=== PATIENT | male | born 1945 | race Caucasian/White ===

== ENCOUNTER 2024-09-29 18:25 | Emergency (ER) | payer MEDICARE, SELFPAY ==
[2024-09-29] VITALS (17 sets, daily range): BP systolic 132–170; BP diastolic 88–99; PULSE 65–81; RESP 8–22; TEMP 36.8; O2SAT 89–96; BMI 28.5
--- NOTE | 2024-09-29 18:50 | ED.SOB ---
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 The patient and his notes that he has had increased cough and chest congestion over the past year. It has worsened over the past month and a half with episodes of shortness of breath with activity and definitely increased over the last 4 and half days. He notes that he feels like he has congestion but he has not had fever or chills. 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 He has not experienced any unusual weight loss. Sometimes he feels like there is some congestion in his throat Related Data Home Medications ?Medication ?Instructions ?Recorded ?Confirmed allopurinol 100 mg tablet 100 mg PO DAILY 11/09/22 01/30/23 losartan 100 mg tablet 100 mg PO DAILY 11/09/22 01/30/23 atenolol 25 mg tablet 25 mg PO DAILY 12/07/22 01/30/23 Previous Rx's ?Medication ?Instructions ?Recorded acetaminophen 500 mg capsule 500 - 1,000 mg (1 - 2 x 500 mg) PO 12/12/22 Q6H PRN #100 caps aspirin 81 mg tablet,delayed 81 mg PO BID #50 tabs 12/12/22 release albuterol sulfate 2.5 mg/3 mL 2.5 mg (3 mL) inhalation Q4H PRN 09/29/24 (0.083 %) solution for nebulization #75 mL nebulizer and compressor #1 ea 09/29/24 Allergies Allergy/AdvReac Type Severity Reaction Status Date / Time lisinopril Allergy Mild Verified 09/29/24 21:12 [facility] Medical History Vasectomy planned Colonoscopy planned Hyperlipemia, 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 - Hyperlipidemia, unspecified (ICD-10) Chronic kidney disease ?N18.9 - Chronic kidney disease, unspecified (ICD-10) Gout ?M10.9 - Gout, unspecified (ICD-10) Hypertension ?I10 - Essential (primary) hypertension (ICD-10) Surgical History 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) ?Z96.641 - Presence of right artificial hip joint (ICD-10) Family History Father Osteoarthritis Diabetes Prostate cancer Brother Prostate cancer Social History Smoking Status: Never smoker Do you use any of these nicotine containing products: None How often do you have a drink containing alcohol: never How many standard drinks containing alcohol do you have on a typical day: 1 or 2 How often do you have six or more drinks on one occasion: Never AUDIT-C Alcohol total score: 0 Non-prescribed substance use: denies use Caffeine: Yes (coffee, 2 cups/AM) service: No Exam Narrative: Exam Narrative: Patient presents alert and oriented. Very pleasant gentleman. External ears eyes nose clear. Mentating normally. Patient has some fullness in the left supraclavicular fossa compared to the right. However palpating this area shows this to be very soft ankle ab supple and there is no evidence of a mass. Heart is with regular rate and rhythm. I do not auscultate significant murmur or rub. Lungs show expiratory wheeze and squeak especially in the right lower lung base. Abdomen soft moving lower extremities without edema. There is no calf tenderness. Const: Vital Signs, click to edit/add: Vital Signs - 24 hr 09/29/24 18:41 09/29/24 19:22 09/29/24 19:31 Temperature 98.3 F Pulse Rate 71 Pulse Rate [Pulse Oximeter] 81 Respiratory Rate 20 15 Blood Pressure Blood Pressure [Ri ght Upper Arm] 170/98 H Pulse Oximetry 89 94 92 Oxygen Delivery Me thod Room Air 09/29/24 19:32 09/29/24 19:45 09/29/24 20:00 Temperature Pulse Rate 74 70 69 Pulse Rate [Pulse Oximeter] Respiratory Rate 22 19 17 Blood Pressure 161/97 H Blood Pressure [Ri ght Upper Arm] Pulse Oximetry 92 92 92 Oxygen Delivery Me thod 09/29/24 20:15 09/29/24 20:30 09/29/24 21:30 Temperature Pulse Rate 69 66 68 Pulse Rate [Pulse Oximeter] Respiratory Rate 16 16 14 Blood Pressure Blood Pressure [Ri ght Upper Arm] Pulse Oximetry 92 92 94 Oxygen Delivery Me thod 09/29/24 21:45 09/29/24 22:32 09/29/24 22:45 Temperature Pulse Rate 71 68 72 Pulse Rate [Pulse Oximeter] Respiratory Rate 19 11 L 19 Blood Pressure 156/99 H Blood Pressure [Ri ght Upper Arm] Pulse Oximetry 91 90 89 Oxygen Delivery Me thod Room Air Room Air 09/29/24 23:00 09/29/24 23:02 09/29/24 23:15 Temperature Pulse Rate 69 68 68 Pulse Rate [Pulse Oximeter] Respiratory Rate 14 14 9 L Blood Pressure 134/88 Blood Pressure [Ri ght Upper Arm] Pulse Oximetry 89 93 96 Oxygen Delivery Me thod Room Air Room Air Room Air 09/29/24 23:30 09/29/24 23:32 Temperature Pulse Rate 65 71 Pulse Rate [Pulse Oximeter] Respiratory Rate 8 L 19 Blood Pressure 132/89 Blood Pressure [Ri ght Upper Arm] Pulse Oximetry 95 96 Oxygen Delivery Me thod Room Air Room Air Documenting provider has reviewed patient's vital signs: yes Course Course ED Course: Differential diagnosis includes but is not limited to COVID, influenza, RSV, bronchitis, pneumonia, congestive heart failure, PE. At this time patient is agreeable to IV labs to include CBC, comprehensive panel, troponin, EKG, D-dimer, proBNP. Will obtain chest x-ray at this time. Patient does note a normal CT in December of 2023. He is supposed to see a fan blade truer but does not have an appointment until December. Will also try a nebulizer at this time. Reevaluation(s) Reevaluation #1: Patient was placed on oxygen as his oximetry showed 88-90%. Oxygen levels rhythm at 94% and he thought he did feel better. We did try a DuoNeb and patient was noted to have oxygen levels in the 90s which did appear to stay there. Subjectively he did feel better after DuoNeb. Patient did have an elevated D-dimer and given his worsening symptoms, normal chest x-ray and oximetry we did elect to go ahead with the CT PE study of the chest which was negative for PE. It did showBibasilar ground-glass opacities with mild superimposed consolidations.. Vital Signs Vital signs: Initial Vital Signs Temperature 98.3 F 09/29/24 18:41 Temperature Source Temporal Artery Scan 09/29/24 18:41 Pulse Rate 81 09/29/24 18:41 Respiratory Rate 20 09/29/24 18:41 Blood Pressure 170/98 H 09/29/24 18:41 Blood Pressure Mean 122 H 09/29/24 18:41 Pulse Oximetry 89 09/29/24 18:41 Oxygen Delivery Method Room Air 09/29/24 18:41 Vital Signs Temperature 98.3 F 09/29/24 18:41 Pulse Rate 81 09/29/24 18:41 Respiratory Rate 20 09/29/24 18:41 Blood Pressure 170/98 H 09/29/24 18:41 Pulse Oximetry 89 09/29/24 18:41 Oxygen Delivery Method Room Air 09/29/24 18:41 Temperature 98.3 F 09/29/24 18:41 Pulse Rate 71 09/29/24 23:32 Respiratory Rate 19 09/29/24 23:32 Blood Pressure 132/89 09/29/24 23:32 Pulse Oximetry 96 09/29/24 23:32 Oxygen Delivery Method Room Air 09/29/24 23:32 MDM - SOB/Dyspnea MDM Narrative Medical decision making narrative: 1. Bronchitis-patient noted to have increased bronchial wall thickening, superimposed congestion and mucus plugging. He has tested negative for COVID influenza and RSV. He has evidence of hypoxia during his time here although much improved after a nebulizer. At this time I do suggest antibiotics and steroids. I would suggest Augmentin 875 p.o. b.i.d. x7 days and Zithromax 500 mg on day 1 and 250 mg for the subsequent 4 days. I do recommend the use of prednisone 20 mg p.o. b.i.d.. We did have a discussion regarding possibly reactivating TB but it does not sound like patient ever had an active case of TB. I do give them the option of holding off but he has elected to go ahead and start this. Will also give him prescription for nebulizer machine and albuterol as this seemed to greatly helped. At 1 point I did see his oxygen levels dropped to 88% but with repositioning of the oximetry and a few episodes of deep breathing he was at 95% once again. He is not short of breath at this time and does feel comfortable going home. 2. Shortness of breath-improved. Did check cardiac enzymes and they have negative x2. EKG does show T-wave inversion in 3 and AVF along with Q-waves noted in those leads. I think this is not acute and patient had negative cardiac enzymes here. I did not find old EKGs in our system. ProBNP was within normal limits.-no evidence of heart failure. 3. Chronic kidney disease patient had a creatinine of 1 point 6 tonight. He states his baseline is 1.5. I did give him 500 mL bolus of saline after his CT. So 4. Disposition-patient does feel comfortable going home at this time. Augmentin prednisone and Zithromax were put through our [facility] med[facility] machine and albuterol and the nebulizer were sent to his pharmacy. He is to return to the ER for worsening symptoms and as needed. Medical Records Attestation: I reviewed the patient's medical records. Lab Data Attestation: I reviewed the patient's lab results. Labs: Lab Results 09/29/24 09/29/24 09/29/24 Range/Units 16:15 19:15 19:54 WBC 5.57 (4.50-11.00) K/uL RBC 4.26 L (4.30-5.90) m/uL Hgb 13.5 (13.5-17.5) gm/dL Hct 39.9 (37.0-53.0) % MCV 94 (80-100) fL MCH 32 (26-34) pg MCHC 34 (32-36) gm/dL RDW Coeff of Mickey 12.6 (11.5-15.5) % Plt Count 256 (140-440) K/uL Neut % (Auto) 40.9 L (42.0-72.0) % Lymph % (Auto) 29.6 (20-44) % [place] % (Auto) 10.6 (0.0-11.0) % Eos % (Auto) 16.3 H (0.0-7.0) % Baso % (Auto) 2.2 (0.0-3.0) % Neut # (Auto) 2.30 (1.7-7.0) K/uL Lymph # (Auto) 1.65 (0.90-2.90) K/uL [place] # (Auto) 0.60 (0.00-0.90) K/UL Eos # (Auto) 0.90 H (0.00-0.50) K/uL Baso # (Auto) 0.12 (0.00-0.30) K/uL Abs Immat Gran (auto) 0.02 (0.00-0.30) K/uL Imm/Tot Granulo (auto) 0.4 % D-Dimer Quant (PE/DVT) 0.94 H (0.00-0.50) ug/ml Sodium 136 (135-149) mmol/L Potassium 4.0 (3.6-5.1) mmol/L Chloride 103 (96-114) mmol/L Carbon Dioxide 24 (20-32) mmol/L Anion Gap 9 (7-15) mEq/L BUN 22 (7-30) mg/dL Creatinine 1.6 H (0.5-1.5) mg/dL Estimated Creat Clear 38.66 Estimated GFR 44 ml/min Glucose 108 (60-115) mg/dL Calcium 9.1 (8.4-10.6) mg/dL Total Bilirubin 0.4 (0.1-1.5) mg/dL AST 25 (12-35) U/L ALT 20 (4-50) U/L Alkaline Phosphatase 55 (40-150) U/L NT-Pro-B Natriuret Pep 84 pg/mL Total Protein 7.1 (6.0-8.3) g/dL Albumin 4.4 (3.3-5.0) g/dL SARS-CoV-2 (PCR) (Negative) Influenza Type A (PCR) (Negative) Influenza Type B (PCR) (Negative) RSV (PCR) (Negative) Lab Acknowledgement Test Added POC Troponin I 0.04 (0.01-0.04) ng/ml 09/29/24 09/29/24 Range/Units 20:03 21:17 WBC (4.50-11.00) K/uL RBC (4.30-5.90) m/uL Hgb (13.5-17.5) gm/dL Hct (37.0-53.0) % MCV (80-100) fL MCH (26-34) pg MCHC (32-36) gm/dL RDW Coeff of Mickey (11.5-15.5) % Plt Count (140-440) K/uL Neut % (Auto) (42.0-72.0) % Lymph % (Auto) (20-44) % [place] % (Auto) (0.0-11.0) % Eos % (Auto) (0.0-7.0) % Baso % (Auto) (0.0-3.0) % Neut # (Auto) (1.7-7.0) K/uL Lymph # (Auto) (0.90-2.90) K/uL [place] # (Auto) (0.00-0.90) K/UL Eos # (Auto) (0.00-0.50) K/uL Baso # (Auto) (0.00-0.30) K/uL Abs Immat Gran (auto) (0.00-0.30) K/uL Imm/Tot Granulo (auto) % D-Dimer Quant (PE/DVT) (0.00-0.50) ug/ml Sodium (135-149) mmol/L Potassium (3.6-5.1) mmol/L Chloride (96-114) mmol/L Carbon Dioxide (20-32) mmol/L Anion Gap (7-15) mEq/L BUN (7-30) mg/dL Creatinine (0.5-1.5) mg/dL Estimated Creat Clear Estimated GFR ml/min Glucose (60-115) mg/dL Calcium (8.4-10.6) mg/dL Total Bilirubin (0.1-1.5) mg/dL AST (12-35) U/L ALT (4-50) U/L Alkaline Phosphatase (40-150) U/L NT-Pro-B Natriuret Pep pg/mL Total Protein (6.0-8.3) g/dL Albumin (3.3-5.0) g/dL SARS-CoV-2 (PCR) Negative SARS-CoV-2 (Negative) Influenza Type A (PCR) Negative PCR FLU A (Negative) Influenza Type B (PCR) Negative PCR FLU B (Negative) RSV (PCR) Negative PCR RSV (Negative) Lab Acknowledgement POC Troponin I 0.00 L (0.01-0.04) ng/ml Imaging Data Chest x-ray: Attestation: I have reviewed the pertinent imaging results. Radiologist's impression: Cardiovascular and mediastinum: Heart size and vasculature are normal in caliber and appearance. Lungs and pleural spaces: Lungs are clear. No sign of infiltrate or mass. No sign of pleural effusion. No pneumothorax. Bones and soft tissues: No significant findings. IMPRESSION: No acute or significant findings. CT scan - chest: Attestation: I have reviewed the pertinent imaging results. Radiologist's impression: Heart and vasculature: Contrast opacification of the pulmonary arterial tree is adequate. No sign of pulmonary embolism. Heart size is normal. Thoracic aorta is normal in caliber. Lungs: Bibasilar ground-glass opacities with mild superimposed consolidations with upstream distal airway debris and bronchial wall thickening. Right apical calcified granuloma. Pleura: No pleural effusion or pneumothorax. Lymph nodes/mediastinum: No mediastinal, hilar, or axillary adenopathy. Chest wall: No masses. Upper abdomen: Small hiatal hernia. Bones: Unremarkable for age. IMPRESSION: 1. No acute pulmonary embolism. 2. Bibasilar ground-glass opacities with mild superimposed consolidations. There is upstream distal airway debris and bronchial wall thickening. These findings may reflect sequelae of infectious/inflammatory or reactive bronchiolitis with mucous plugging. Aspiration could have a similar appearance. ECG Data Attestation: I personally reviewed and interpreted this ECG as follows: ECG interpretation date: 09/30/24 Interpretation: EKG by my read shows sinus rhythm at a rate of 75. There are Q-waves and T-wave inversions noted in 3 and AVF but they appear to be chronic. QT and CA intervals within normal limits. Discharge Plan Discharge Clinical Impression: Bronchitis, Hypoxia Patient Disposition: Home, Self-Care Condition: Improved Additional Instructions: Suggest starting Augmentin and Zithromax tonight for the treatment of a bronchitis. Prednisone as your steroid for 5 days but you may discontinue after 3 if you find you are improving. I did send prescription for albuterol and nebulizer machine to your pharmacy. Please remember to take the tubing that you used here tonight. Follow-up with your primary MD as we discussed. Please return to the emergency room for any worsening symptoms. Prescriptions: New (DME) nebulizer and compressor Device See Rx Instructions .Route Qty: 1 0RF Rx Instructions: As directed albuterol sulfate 2.5 mg /3 mL (0.083 %) solution for nebulization 2.5 mg inhalation Q4H PRNQty: 75 1RF No Action losartan 100 mg tablet 100 mg PO DAILY allopurinol 100 mg tablet 100 mg PO DAILY atenolol 25 mg tablet 25 mg PO DAILY aspirin 81 mg tablet,delayed release (DR/EC) 81 mg PO BID Qty: 50 0RF Rx Instructions: Medication to help prevent blood clots postoperatively; take TWICE daily. acetaminophen 500 mg capsule 500 - 1,000 mg PO Q6H MDD 4000mg PRNQty: 100 0RF Follow Up/Referrals: London Gupta MD [Primary Care Provider] - Stand Alone Forms: [employer] Info Instructions
[2024-09-29 19:26] LABS: Basophils Absolute Auto 0.12 K/uL (0.00-0.30); Basophils Percent Auto 2.2 % (0.0-3.0); Eosinophils Percent Auto 16.3 % (0.0-7.0); Hematocrit 39.9 % (37.0-53.0); Hemoglobin* 13.5 gm/dL (13.5-17.5); Immature Granulocytes Abs Auto 0.02 K/uL (0.00-0.30); Immature Granulocytes Pct Auto 0.4 %; Lymphocytes Absolute Auto 1.65 K/uL (0.90-2.90); Lymphocytes Percent Auto 29.6 % (20-44); Mean Corpuscular HGB Conc 34 gm/dL (32-36); Mean Corpuscular Hemoglobin 32 pg (26-34); Mean Corpuscular Volume 94 fL (80-100); Monocytes Percent Auto 10.6 % (0.0-11.0); Neutrophils Percent Auto 40.9 % (42.0-72.0); Platelet Count* 256 K/uL (140-440); RDW Coefficient of Variation % 12.6 % (11.5-15.5); Red Blood Count 4.26 m/uL (4.30-5.90); White Blood Count* 5.57 K/uL (4.50-11.00)
[2024-09-29 19:29] LABS: Troponin, Point-of-Care* 0.04 ng/ml (0.01-0.04)
[2024-09-29 19:31] LABS: Slide Review Reflex No
--- OUTSIDE RECORDS SUMMARY | 2024-09-29 19:31 | XMS_ITS ---
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 Problems This patient has no known problems.
--- OUTSIDE RECORDS SUMMARY | 2024-09-29 19:31 | XMS_ITS | Clinical Summary ---
Author Organization [facility] Address [address] [place] [id number] Care Team Providers Care Website Optimization Strategist Name Role Phone London Gupta MD Primary Care Provider Zane Sahu MBBS Unavailable Allergies Active Allergy Reactions Criticality Noted Date Comments Lisinopril Cough 10/22/2018 Medications losartan (COZAAR) 100 mg tabletIndicatio ns:Benign essential HTN Take 1 Tablet (100 mg) by mouth once daily. 90 Tablet 3 4 Active albuterol HFA (PRO-AIR; VENTOLIN; PROVENTIL) 90 mcg/actuation inhalerIndicati ons:Cough, unspecified type Inhale 1-2 Puffs by mouth every 4 hours if needed for Shortness Of Breath or Wheezing. With spacer if possible. 1 Each 1 4 Active montelukast (SINGULAIR) 10 mg tabletIndicatio ns:Allergy, initial encounter Take 1 Tablet (10 mg) by mouth at bedtime. 90 Tablet 3 4 Active predniSONE (DELTASONE) 5 mg tabletIndicatio ns:Gout, unspecified cause, unspecified chronicity, unspecified site Take 2 tablets daily for 7 days, then 1 tablet daily for 7 days. 21 Tablet 2 4 Active allopurinoL (ZYLOPRIM) 100 mg tabletIndicatio ns:Gout, unspecified cause, unspecified chronicity, unspecified site Take 2 Tablets (200 mg) by mouth once daily. 180 Tablet 3 5 Active amLODIPine (NORVASC) 10 mg tabletIndicatio ns:Benign essential HTN Take 0.5 Tablets (5 mg) by mouth once daily. 5 Active carvediloL (COREG) 12.5 mg tabletIndicatio ns:Benign essential HTN Take 1 Tablet (12.5 mg) by mouth two times daily with meals. 60 Tablet 11 5 Active polyethylene glycol-electrol yte (GOLYTELY) 236-22.74-6.74 -5.86 gram suspensionIndic ations:Encounte r for screening colonoscopy Drink 2 liters (half the bottle) the day before colonoscopy and 2 liters (remaining prep) 6 hours prior to colonoscopy appointment. 4000 mL 5 Active atenoloL (TENORMIN) 25 mg tabletIndicatio ns:Benign essential HTN Take 1 Tablet (25 mg) by mouth once daily. 90 Tablet 3 4 025 Discontin ued(*Medi cation adjustmen t) amLODIPine (NORVASC) 10 mg tabletIndicatio ns:Benign essential HTN Take 1 Tablet (10 mg) by mouth once daily. 90 Tablet 3 4 025 Discontin ued(*Medi cation adjustmen t) potassium chloride (Klor-Con 10) 10 mEq extended-releas e tabletIndicatio ns:Benign essential HTN Take 1 Tablet (10 mEq) by mouth once daily with a meal. 90 Tablet 3 5 025 Discontin ued(*Medi cation adjustmen t) chlorthalidone (HYGROTON) 25 mg tabletIndicatio ns:Benign essential HTN Take 1 Tablet (25 mg) by mouth once daily. 90 Tablet 3 5 025 Discontin ued(*Medi cation adjustmen t) chlorthalidone (HYGROTON) 25 mg tabletIndicatio ns:Benign essential HTN One oral every other day. 90 Tablet 3 5 025 Discontin ued(*Medi cation adjustmen t) Active Problems Problem Noted Date Diagnosed Date Bilateral lower extremity edema 09/10/2024 Reactive airways dysfunction syndrome 04/07/2024 Stage 3a chronic kidney disease 10/31/2022 Heart murmur: 2/6 rt upper sternal border 2 04/24/2022 Gout 05/23/2021 Overview (06/03/2021): Rheum eval at [facility]. Allopurinol started.Pred for flares. Change to Losaraten for htn 2/2 UA lowering effect. Allergies 05/04/2020 Hyperlipidemia Benign essential HTN Resolved Problems Problem Noted Date Diagnosed Date Resolved Date Stage 3b chronic kidney disease 12/31/2023 04/07/2024 Chronic kidney disease 11/24 Encounters Date Type Department Care Team Description 09/29/2024 Nurse Triage [facility] [address] [place] [address] Edie Alvarez RN Breathing Problem 09/28/2024 Travel 09/23/2024 4:00 PM ARTIFICIAL MARBLE WORKER Ancillary Procedure [facility] [address] [place] [address] 09/23/2024 Travel 09/23/2024 Telephone [facility] [address] [place] [address] [phone] Pulmonary, Ulsc Screening (TB/Cough) 2024 Travel 09/19/2024 2:00 PM ARTIFICIAL MARBLE WORKER Orders Only [facility] [id number] [place] [address] Lab 09/19/2024 Travel 09/17/2024 2:30 PM ARTIFICIAL MARBLE WORKER Office Visit [facility] [id number] [place] [address] Zane Sahu MBBS Consult (Referred by PCP: London Gupta MD/Diagnosis: N18.32 (ICD-10-CM) - Stage 3b chronic kidney disease (HC)) 09/17/2024 Travel 09/13/2024 Travel 09/12/2024 Telephone [facility] [address] [place] [address] Rafita Rashid MD COLONOSCOPY & EGD CASE REQUEST/ RX 09/11/2024 Orders Only [facility] [address] [place] [address] London Gupta MD <No scans attached> 09/10/2024 2:05 PM ARTIFICIAL MARBLE WORKER Office Visit [facility] [address] [place] [address] London Gupta MD Blood Pressure 09/10/2024 Travel 09/07/2024 Travel 08/26/2024 Orders Only [facility] [address] [place] [address] London Gupta MD <No scans attached> 08/25/2024 1:30 PM ARTIFICIAL MARBLE WORKER Orders Only [facility] [address] [place] [address] [place], [place] Lab 08/24/2024 Travel 08/12/2024 2:05 PM ARTIFICIAL MARBLE WORKER Office Visit [facility] [address] [place] [address] London Gupta MD Follow Up (Blood pressure) 08/12/2024 Travel 08/10/2024 Travel 07/14/2024 1:15 PM ARTIFICIAL MARBLE WORKER Telemedicine [facility] [address] [place] [address] London Gupta MD Telehealth (No vitals taken); Follow Up (Blood pressure /Cough ) 07/13/2024 Travel from Last 3 Months Immunizations Immunization Administration Dates Next Due Amb Influenza, Inact (High-d ose Quadrivalent) (Flu Clinic Only) 04/05/2020 COVID-19 VACCINE SPIKEVAX (M ODERNA 50MCG/0.5ML) 12YO+ PFS 12/31/2023 COVID-19 vaccine (Moderna 10 0mcg/0.5mL) PF, MDV 11/07/2021,10/17/2020,09/19/2020 Influenza A (H1N1), Inactiva george (Age >=3 Years) 05/21/2009 Influenza, High-dose Inactivated 05/15/2024,11/0 01/2019,06/19/2018 Influenza, High-dose Quadriv alent Inactivated 05/06/2022,04/25/2021 Influenza, Inactivated AIIV4 (Age 65+ Years) Preserv Free 05/17/2023 Pneumococcal Poly,23-Valent (Pneumovax) 05/04/20 Pneumococcal conj 13-Valent (Prevnar 13) 019 Tdap 01/05/2012 Zoster (Shingrix-RZV, recombinant) 05/13/2024, Zoster (Zostavax-ZVL, live) 05/23/2012 Family History Medical History Relation Name Comments Cancer-prostate Brother Diabetes Father Heart Disease Father cabg age 80 Lung cancer Father Anesthesia Problem No Family History Cancer-colon No Family History Relation Name Status Comments Brother Father Social History Tobacco Use Types Packs/Day Years Used Date Smoking Tobacco: Never Smokeless Tobacco: Never Tobacco Cessation:Counseling Given: No Alcohol Use Standard Drinks/Week Comments Yes 0 (1 standard drink = 0.6 oz pur e alcohol) PHQ-2 Answer Date Recorded PHQ-2 TOTAL SCORE 0 12/31/2023 Social Connections Answer Date Recorded Do you often feel lonely or isolated from those around you? 0 12/31/2023 Financial Resource Strain Answer Date R ecorded Difficulty of Paying Living Expenses 3 12/31/2023 Difficulty of Paying Living Expenses Not on file 12/31/2023 Food Insecurity Answer Date Recorded Do you worry your food will run out before you are able to buy more? 1 12/31/2023 Transportation Needs Answer Date Record ed Does lack of transportation keep you from medica l appointments? 1 12/31/2023 Does lack of transportation keep you from work, meetings or getting things that you need? 1 12/31/2023 Housing Stability Answer Date Recorded What is your housing situation today? 1 12/31/2023 Utilities Answer Date Recorded Do you have trouble paying f or utilities (for example, heat, electricity, water, phone)? 1 12/31/2023 Sex and Gender Information Value Date Recorded Sex Assigned at Not on file Legal Sex Male 8:57 AM CDT Gender Identity Not on file Sexual Orientation Not on file Obstetrics History Last Filed Vital Signs Vital Sign Reading Time Taken Comments Blood Pressure 141/86 09/17/2024 2:20 PM ART[employer]IAL [employer]BLE WORKER Pulse 69 09/17/2024 2:20 PM ART[employer]IAL MARBLE WORKER Temperature 36.9 C (98.4 F) 01/22/2019 11:30 AM CDT Respiratory Rate - - Oxygen Saturation 97% 09/10/2024 2:0 0 PM ART[employer]IAL MARBLE WORKER Inhaled Oxygen Concentration - - Weight 87.6 kg (193 lb 1.6 oz) 09/17/19 2:20 PM ARTIFICIAL MARBLE WORKER with shoes Height 172.5 cm (5' 7.91) 12/31/2023 1 :20 PM CDT Body Mass Index 29.44 12/31/2023 1:20 PM CDT Plan of Treatment Upcoming Encounters Date Type Department Care Team (Late st Contact Info) Description 10/01/2024 2:00 PM CDT Office Visit [facility] [address] [place] [address] Anastasia Blackburn PA [address] [place] [address] 10/02/2024 1:15 PM CDT Office Visit [facility] [address] [place] [address] London Gupta MD [address] [place] [address] 10/03/2024 9:00 AM CDT Appointment [facility] [place] [address] [place] [address] 10/21/2024 1:30 PM CDT Orders Only [facility] [address] [place] [address] [place], [place] 10/29/2024 2:00 PM CDT Office Visit [facility] [address] [place] [address] Zane Sahu MBBS [address] [place] [address] 11/06/2024 8:30 AM CDT Office Visit [facility] [address] [place] [address] [place] [id number] [place] [address] 12/30/2024 11:30 AM CDT Office Visit [facility] [address] [place] [address] Rajwinder Duval MD [address] [facility] [address] [place] [address] Scheduled Procedures Name Priority Associated Diagnoses Date/Ti me SURGICAL PROCEDURE (TYPE PROCEDURE DESCRIPTION BELOW) Encounter for screening colonoscopy Anemia, unspecified type Health Maintenance Due Date Last Done Comments Medicare Wellness for age 65+ 05/05/2021 05/04/2020 Tetanus booster 01/04/2022 01/05/2012 RSV vaccine for adults or (1 - 1-dose 75+ series) 09/19/2022 COVID-19 vaccine series ( season) 2024 05/15/2024, 12/31/2023, 06/12/2023, Additional history exists BMI (ht and wt on same day) for age 18+ 12/30/2024 12/31/2023, 11/24/2022, 04/24/2022, Additional history exists Depression screening for age 12+ 12/31/2024 01/01/2024, 12/31/2023, 05/04/2020, Additional history exists Tdap Completed 01/05/2012 Pneumococcal series for age 50+ Completed , 10/22/2018 Zoster (shingles) series for age 50+ Completed 05/13/2024, 02/14/2024, 05/23/2012 Influenza Vaccine Completed 05/15/2024, , 04/05/2020, Additional history exists Hepatitis C screening for ag e 18-79 Completed 09/19/2024, 10/22/2018 Procedures Procedure Name Priority Date/Time Associated Diagnosis Comments US RENAL AND BLADDER COMPLETE Routine 09/23/2024 4:31 PM ARTIFICIAL MARBLE WORKER Stage 3b chronic kidney disease (HC) IMMUNOFIXATION ELP, URINE Routine 09/19/2024 2:09 PM ARTIFICIAL MARBLE WORKER Stage 3b chronic kidney disease (HC) REENA (acute kidney injury) Hypertensive renal disease URINALYSIS MACROSCOPIC - [facility] ONLY POC DIP (QUEST) Routine 09/19/2024 2:09 PM ARTIFICIAL MARBLE WORKER Stage 3b chronic kidney disease (HC) REENA (acute kidney injury) Hypertensive renal disease CBC WITH AUTO DIFFERENTIAL Routine 09/19/2024 2:07 PM ARTIFICIAL MARBLE WORKER Stage 3b chronic kidney disease (HC) REENA (acute kidney injury) Hypertensive renal disease MAGNESIUM Routine 09/19/2024 2:07 PM ARTIFICIAL MARBLE WORKER REENA (acute kidney injury) Hypertensive renal disease CK TOTAL Routine 09/19/2024 2:07 PM ARTIFICIAL MARBLE WORKER REENA (acute kidney injury) Hypertensive renal disease ANTI HCV Routine 09/19/2024 2:07 PM ARTIFICIAL MARBLE WORKER Stage 3b chronic kidney disease (HC) REENA (acute kidney injury) Hypertensive renal disease IGM ANTI-HBC Routine 09/19/2024 2:07 PM ARTIFICIAL MARBLE WORKER Stage 3b chronic kidney disease (HC) REENA (acute kidney injury) Hypertensive renal disease URINALYSIS MICROSCOPIC Routine 2:07 PM ARTIFICIAL MARBLE WORKER Stage 3b chronic kidney disease (HC) REENA (acute kidney injury) Hypertensive renal disease ANTI HIV 1/2 Routine 09/19/2024 2:07 PM ARTIFICIAL MARBLE WORKER Stage 3b chronic kidney disease (HC) REENA (acute kidney injury) Hypertensive renal disease ELP AND FREE LIGHT CHAINS W REFLEX, BLOOD Routine 09/19/2024 2:07 PM ARTIFICIAL MARBLE WORKER Stage 3b chronic kidney disease (HC) REENA (acute kidney injury) Hypertensive renal disease IMMUNOFIXATION,SERUM Routine 09/19/2024 2:07 PM ARTIFICIAL MARBLE WORKER Stage 3b chronic kidney disease (HC) REENA (acute kidney injury) Hypertensive renal disease C3 COMPLEMENT Routine 09/19/2024 2:07 PM ARTIFICIAL MARBLE WORKER Stage 3b chronic kidney disease (HC) REENA (acute kidney injury) Hypertensive renal disease C4 COMPLEMENT Routine 09/19/2024 2:07 PM ARTIFICIAL MARBLE WORKER Stage 3b chronic kidney disease (HC) REENA (acute kidney injury) Hypertensive renal disease COMP METABOLIC PANEL Routine 09/19/2024 2:07 PM ARTIFICIAL MARBLE WORKER Stage 3b chronic kidney disease (HC) REENA (acute kidney injury) Hypertensive renal disease PHOSPHORUS Routine 09/19/2024 2:07 PM ARTIFICIAL MARBLE WORKER Stage 3b chronic kidney disease (HC) REENA (acute kidney injury) Hypertensive renal disease CBC WITH AUTO DIFFERENTIAL Routine 09/19/2024 2:07 PM ARTIFICIAL MARBLE WORKER Stage 3b chronic kidney disease (HC) REENA (acute kidney injury) Hypertensive renal disease PROTEIN/CREAT RATIO,URINE Routine 09/10/2024 2:34 PM ARTIFICIAL MARBLE WORKER Stage 3b chronic kidney disease (HC) HEMOGLOBIN Routine 09/10/2024 2:34 PM ARTIFICIAL MARBLE WORKER Anemia of unknown etiology FERRITIN Routine 09/10/2024 2:34 PM ARTIFICIAL MARBLE WORKER Anemia of unknown etiology IRON PLUS IRON BINDING CAP Routine 09/10/2024 2:34 PM ARTIFICIAL MARBLE WORKER Anemia of unknown etiology VITAMIN B12 Routine 09/10/2024 2:34 PM ARTIFICIAL MARBLE WORKER Anemia of unknown etiology BASIC METABOLIC PANEL Routine 09/10/2024 2:34 PM ARTIFICIAL MARBLE WORKER Stage 3b chronic kidney disease (HC) CELIAC CASCADE PANEL Add On 09/10/2024 12:00 AM ARTIFICIAL MARBLE WORKER Iron deficiency anemia, unspecified iron deficiency anemia type BASIC METABOLIC PANEL Routine 08/25/2024 1:36 PM ARTIFICIAL MARBLE WORKER Benign essential HTN CBC WITH AUTO DIFFERENTIAL Routine 08/25/2024 1:36 PM ARTIFICIAL MARBLE WORKER Benign essential HTN URIC ACID Routine 08/25/2024 1:36 PM ARTIFICIAL MARBLE WORKER Gout, unspecified cause, unspecified chronicity, unspecified site from Last 3 Months Results * US RENAL AND BLADDER COMPLETE (09/23/2024 4:31 PM ARTIFICIAL MARBLE WORKER) Anatomical Region Laterality Modality Abdomen, AORTA, KIDNEYS Ultrasou nd 09/24/2024 6:54 AM ARTIFICIAL MARBLE WORKER Impressions 09/24/2024 6:54 AM ARTIFICIAL MARBLE WORKER No hydronephrosis. Simple right renal cysts, unchanged. Trace postvoid residual bladder volume. Dictated by Deny Gay MD @ 09/24/2024 6:54:32 AM (Electronically Signed) Narrative 09/24/2024 6:54 AM ARTIFICIAL MARBLE WORKER For Patients: As a result of the Cures Act, medical imaging exams and procedure reports are released immediately into your electronic medical record. You may view this report before your referring provider. If you have questions, please contact your health care provider. CLINICAL HISTORY: Stage 3b chronic kidney disease COMPARISON: 06/27/2021 TECHNIQUE: Kan scale and color Doppler images were acquired of the kidneys and urinary bladder. FINDINGS: Simple exophytic cyst arises from the inferior pole of the right kidney measuring 13 x 12 x 12 millimeters. Additional exophytic cyst midportion right kidney measures 15 x 11 x 16 millimeters. No hydronephrosis. The right kidney measures 8.7cm in length and the left kidney measures 9.8cm in length. The renal cortex measures 9 millimeters on the right and 16 millimeters on the left. The urinary bladder appears normal. Color Doppler images reveal a normal appearance of both ureteral jets. There is no evidence of bladder calculi or diverticula. Prevoid bladder volume 324 cc. Postvoid bladder volume 16 cc. Residual volume 5 percent. Procedure Note Deny Gay MD - 09/24/2024 For Patients: As a result of the Cures Act, medical imagingexams and procedure reports are released immediately into your electronicmedical record. You may view this report before your referring provider.If you have questions, please contact your health care provider. CLINICAL HISTORY: Stage 3b chronic kidney disease COMPARISON: 06/27/2021 TECHNIQUE: Kan scale and color Doppler images were acquired of the kidneys andurinary bladder. FINDINGS: Simple exophytic cyst arises from the inferior pole of the right kidneymeasuring 13 x 12 x 12 millimeters. Additional exophytic cyst midportionright kidney measures 15 x 11 x 16 millimeters. No hydronephrosis. Theright kidney measures 8.7cm in length and the left kidney measures 9.8cmin length. The renal cortex measures 9 millimeters on the right and 16millimeters on the left. The urinary bladder appears normal. Color Doppler images reveal a normalappearance of both ureteral jets. There is no evidence of bladder calculior diverticula. Prevoid bladder volume 324 cc. Postvoid bladder volume 16cc. Residual volume 5 percent. IMPRESSION: No hydronephrosis. Simple right renal cysts, unchanged. Trace postvoidresidual bladder volume. Dictated by Deny Gay MD @ 09/24/2024 6:54:32 AM (Electronically Signed) us London Gupta MD Final Result * POCT Urinalysis Dipstick Only (09/19/2024 2:09 PM ARTIFICIAL MARBLE WORKER) COLOR Yellow Yellow Color 09/19/2024 2:21 PM ARTIFICIAL MARBLE WORKER [facility] CLARITY Clear Clear Clarity 09/19/2024 2:21 PM ARTIFICIAL MARBLE WORKER [facility] SPECIFIC GRAVITY,URINE 1.010 1.010, 1.015, 1.020, 1.025 09/19/2024 2:21 PM ARTIFICIAL MARBLE WORKER [facility] PH,URINE 6.5 6.0, 7.0, 8.0, 5.5, 6.5, 7.5, 8.5 09/19/2024 2:21 PM ARTIFICIAL MARBLE WORKER [facility] UROBILINOGEN,Q UALITATIVE Normal Normal EU/dl 09/19/2024 2:21 PM ARTIFICIAL MARBLE WORKER [facility] PROTEIN, URINE Negative Negative mg/dL 09/19/2024 2:21 PM ARTIFICIAL MARBLE WORKER [facility] GLUCOSE, URINE Negative Negative mg/dL 09/19/2024 2:21 PM ARTIFICIAL MARBLE WORKER [facility] KETONES,URINE Negative Negative mg/dL 09/19/2024 2:21 PM ARTIFICIAL MARBLE WORKER [facility] BILIRUBIN,URIN E Negative Negative 09/19/2024 2:21 PM ARTIFICIAL MARBLE WORKER [facility] OCCULT BLOOD,URINE Negative Negative 09/19/2024 2:21 PM ARTIFICIAL MARBLE WORKER [facility] NITRITE Negative Negative 09/19/2024 2:21 PM ARTIFICIAL MARBLE WORKER [facility] LEUKOCYTE ESTERASE Negative Negative 09/19/2024 2:21 PM ARTIFICIAL MARBLE WORKER [facility] Urine URINE SPECIMEN / Unknown Non-Blood / Unknown 09/19/2024 2:09 PM ARTIFICIAL MARBLE WORKER 09/19/2024 2:09 PM ARTIFICIAL MARBLE WORKER Zane MEAD URINE Final Result [facility] [address] [place] [address], [place] * IMMUNOFIXATION ELP, URINE (09/19/2024 2:09 PM ARTIFICIAL MARBLE WORKER) Pathologist [facility] IFIX INTERP,URINE Immunofixation on urine shows no monoclonal protein detected and no free light chains detected. Interpreted and electronically signed by: Mikaela Shell MD 09/23/2024 5:08 PM [facility] PROTEIN QUANT,RAND URINE <6 1 - 14 mg/dL 09/23/2024 5:08 PM ARTIFICIAL MARBLE WORKER [facility] Urine URINE SPECIMEN / Unknown Non-Blood / Unknown 09/19/2024 2:09 PM ARTIFICIAL MARBLE WORKER 09/19/2024 2:09 PM ARTIFICIAL MARBLE WORKER us Zane MEAD URINE Final Result [facility] [address] [place] [address], [place] * ELP AND FREE LIGHT CHAINS W REFLEX, BLOOD (09/19/2024 2:07 PM ARTIFICIAL MARBLE WORKER) ELP,ALBUMIN 4.42 3.31 - 5.31 g/dL 09/22/2024 3:17 PM ARTIFICIAL MARBLE WORKER [facility] ELP,ALPHA 1 0.25 0.19 - 0.42 g/dL 09/22/2024 3:17 PM ARTIFICIAL MARBLE WORKER [facility] ELP,ALPHA 2 0.52 0.44 - 1.03 g/dL 09/22/2024 3:17 PM ARTIFICIAL MARBLE WORKER [facility] ELP,GAMMA 0.87 0.59 - 1.46 g/dL 09/22/2024 3:17 PM ARTIFICIAL MARBLE WORKER [facility] ELP,BETA 0.73 0.52 - 1.05 g/dL 09/22/2024 3:17 PM [facility] KAPPA FREE LIGHT CHAIN, S 1.83 0.33 - 1.94 mg/dL 09/22/2024 3:17 PM [facility] LAMBDA FREE LIGHT CHAIN, S 1.95 0.57 - 2.63 mg/dL 09/22/2024 3:17 PM [facility] KAPPA/LAMBDA FLC RATIO 0.94 0.26 - 1.65 09/22/2024 3:17 PM [facility] ELP INTERP,SERUM Normal electrophoretic pattern. No monoclonal protein detected. Interpreted and electronically signed by: Mikaela Shell MD 09/22/2024 3:17 PM [facility] PROTEIN,TOTA L 6.8 6.0 - 8.0 g/dL 09/22/2024 3:17 PM [facility] Blood BLOOD SPECIMEN / Unknown Non-Lab Venipuncture / Unknown 09/19/2024 2:07 PM ARTIFICIAL MARBLE WORKER 09/19/2024 2:08 PM ARTIFICIAL MARBLE WORKER us Zane MEAD CHEMISTRY Final Result [facility] [address] [place] [address], [place] * (ABNORMAL) CBC WITH AUTO DIFFERENTIAL (09/19/2024 2:07 PM ARTIFICIAL MARBLE WORKER) WHITE BLOOD CELL COUNT 5.9 3.8 - 10.8 Thousand/u L 2024 6:22 AM ARTIFICIAL MARBLE WORKER [facility] RED BLOOD CELL COUNT 4.26 4.20 - 5.80 Million/uL 2024 6:22 AM ARTIFICIAL MARBLE WORKER [facility] HEMOGLOBIN 13.6 13.2 - 17.1 g/dL 2024 6:22 AM ARTIFICIAL MARBLE WORKER [facility] HEMATOCRIT 39.8 38.5 - 50.0 % 2024 6:22 AM ARTIFICIAL MARBLE WORKER [facility] MCV 93.4 80.0 - 100.0 fL 2024 6:22 AM ARTIFICIAL MARBLE WORKER [facility] MCH 31.9 27.0 - 33.0 pg 2024 6:22 AM ARTIFICIAL MARBLE WORKER [facility] MCHC 34.2 32.0 - 36.0 g/dL 2024 6:22 AM ARTIFICIAL MARBLE WORKER [facility] Comment: For adults, a slight decrease in the calculated MCHC value (in the range of 30 to 32 g/dL) is most likely not clinically significant; however, it should be interpreted with caution in correlation with other red cell parameters and the patient's clinical condition. RDW 13.3 11.0 - 15.0 % 2024 6:22 AM ARTIFICIAL MARBLE WORKER [facility] PLATELET COUNT 282 140 - 400 Thousand/u L 2024 6:22 AM ARTIFICIAL MARBLE WORKER [facility] MPV 10.5 7.5 - 12.5 fL 2024 6:22 AM ARTIFICIAL MARBLE WORKER [facility] NEUTROPHILS 50.1 % 2024 6:22 AM ARTIFICIAL MARBLE WORKER [facility] LYMPHOCYTES 25.9 % 2024 6:22 AM ARTIFICIAL MARBLE WORKER [facility] MONOCYTES 8.3 % 2024 6:22 AM ARTIFICIAL MARBLE WORKER [facility] EOSINOPHILS 13.7 % 2024 6:22 AM ARTIFICIAL MARBLE WORKER [facility] BASOPHILS 2.0 % 2024 6:22 AM ARTIFICIAL MARBLE WORKER [facility] ABSOLUTE NEUTROPHILS 2956 1500 - 7800 cells/uL 2024 6:22 AM ARTIFICIAL MARBLE WORKER [facility] ABSOLUTE LYMPHOCYTES 1528 850 - 3900 cells/uL 2024 6:22 AM ARTIFICIAL MARBLE WORKER [facility] ABSOLUTE MONOCYTES 490 200 - 950 cells/uL 2024 6:22 AM ARTIFICIAL MARBLE WORKER [facility] ABSOLUTE EOSINOPHILS 808(H) 15 - 500 cells/uL 2024 6:22 AM ARTIFICIAL MARBLE WORKER [facility] ABSOLUTE BASOPHILS 118 0 - 200 cells/uL 2024 6:22 AM ARTIFICIAL MARBLE WORKER [facility] Blood BLOOD SPECIMEN / Unknown Non-Lab Venipuncture / Unknown 09/19/2024 2:07 PM ARTIFICIAL MARBLE WORKER 09/19/2024 2:08 PM ARTIFICIAL MARBLE WORKER Zane MEAD HEMATOLOGY Final Result [facility] [address] [address], [place] [phone] * URINALYSIS MICROSCOPIC (09/19/2024 2:07 PM ARTIFICIAL MARBLE WORKER) RBC 0-2 0-2, None Seen /HPF 09/19/2024 10:28 PM ARTIFICIAL MARBLE WORKER [facility] LABORATORY-[facility] LAB[facility]ATORY WBC 0-2 0-2, 3-5, None Seen /HPF 09/19/2024 10:28 PM ARTIFICIAL MARBLE WORKER [facility] BACTERIA None Seen None Seen, Rare, Few Bacteria/ HPF 09/19/2024 10:28 PM ARTIFICIAL MARBLE WORKER [facility] EPITHELIAL CELLS None Seen None Seen, Few Epi/HPF 09/19/2024 10:28 PM ARTIFICIAL MARBLE WORKER [facility] HYALINE CASTS 0-2 0-2, 3-5 /LPF 09/19/2024 10:28 PM ARTIFICIAL MARBLE WORKER [facility] Urine URINE SPECIMEN / Unknown Non-Blood / Unknown 09/19/2024 2:07 PM ARTIFICIAL MARBLE WORKER 09/19/2024 2:08 PM ARTIFICIAL MARBLE WORKER Zane MEAD URINE Final Result [facility] [address] [place] [address], * IMMUNOFIXATION,SERUM (09/19/2024 2:07 PM ARTIFICIAL MARBLE WORKER) IGG 949.31 610.30 - 1,616.00 mg/dL 09/22/2024 3:17 PM ARTIFICIAL MARBLE WORKER [facility] IGA 126.09 84.50 - 499.00 mg/dL 09/22/2024 3:17 PM ARTIFICIAL MARBLE WORKER [facility] IGM 104.32 35.00 - 242.00 mg/dL 09/22/2024 3:17 PM ARTIFICIAL MARBLE WORKER [facility] IFIX INTERP,SERUM Immunofixation on serum shows no monoclonal protein detected and no free light chains detected. Interpreted and electronically signed by: Mikaela Shell MD 09/22/2024 3:17 PM ARTIFICIAL MARBLE WORKER [facility] Blood BLOOD SPECIMEN / Unknown Non-Lab Venipuncture / Unknown 09/19/2024 2:07 PM ARTIFICIAL MARBLE WORKER 09/19/2024 2:08 PM ARTIFICIAL MARBLE WORKER Zane MEAD CHEMISTRY Final Result Performing Organization Address [facility] Co de Phone Number [facility] [address] [place] [address], * ANTI HCV (09/19/2024 2:07 PM ARTIFICIAL MARBLE WORKER) HEPATITIS C ANTIBODY NON-REACT JENNIFER NON-REACT JENNIFER 2024 6:51 AM ARTIFICIAL MARBLE WORKER [employer] Comment: HCV antibody was non-reactive. There is no laboratory evidence of HCV infection. In most cases, no further action is required. However, if recent HCV exposure is suspected, a test for HCV RNA (test code 43583) is suggested. For additional information please refer to http://education.Ringleadr.com/faq/OHW54u0 (This link is being provided for informational/ educational purposes only.) Blood BLOOD SPECIMEN / Unknown Non-Lab Venipuncture / Unknown 09/19/2024 2:07 PM ARTIFICIAL MARBLE WORKER 09/19/2024 2:08 PM ARTIFICIAL MARBLE WORKER Zane MEAD SEND OUTS Final Result Performing Organization Address City/[facility] Co de Phone Number [employer] [address] [address], * C3 COMPLEMENT (09/19/2024 2:07 PM ARTIFICIAL MARBLE WORKER) COMPLEMENT COMPONENT C3C 139 82 - 185 mg/dL 09/22/2024 5:58 PM ARTIFICIAL MARBLE WORKER [facility] Blood BLOOD SPECIMEN / Unknown Non-Lab Venipuncture / Unknown 09/19/2024 2:07 PM ARTIFICIAL MARBLE WORKER 09/19/2024 2:08 PM ARTIFICIAL MARBLE WORKER [facility] Citlalli Sahu [facility] Final Result [facility] [address] [address], * C4 COMPLEMENT (09/19/2024 2:07 PM ARTIFICIAL MARBLE WORKER) COMPLEMENT COMPONENT C4C 28 15 - 53 mg/dL 09/22/2024 5:58 PM ARTIFICIAL MARBLE WORKER [facility] Blood BLOOD SPECIMEN / Unknown Non-Lab Venipuncture / Unknown 09/19/2024 2:07 PM ARTIFICIAL MARBLE WORKER 09/19/2024 2:08 PM ARTIFICIAL MARBLE WORKER Zane Sahu [facility] Final Result Performing Organization Address City/[facility]/ZIP Co de Phone Number [facility] [address] [address], * IGM ANTI-HBC (09/19/2024 2:07 PM ARTIFICIAL MARBLE WORKER) HEPATITIS B CORE ANTIBODY (IGM) NON-REACT JENNIFER NON-REACT JENNIFER 09/22/2024 11:04 AM ARTIFICIAL MARBLE WORKER [facility] Comment: For additional information, please refer to http://education.Ringleadr.com/faq/WYN050 (This link is being provided for informational/ educational purposes only.) Blood BLOOD SPECIMEN / Unknown Non-Lab Venipuncture / Unknown 09/19/2024 2:07 PM ARTIFICIAL MARBLE WORKER 09/19/2024 2:08 PM ARTIFICIAL MARBLE WORKER Zane Staufferabhishek MEAD SEND OUTS Final Result Performing Organization Address [facility] Co de Phone Number [employer] [address] [address], * ANTI HIV 1/2 (09/19/2024 2:07 PM ARTIFICIAL MARBLE WORKER) HIV AG/AB, 4TH GEN NON-REACT JENNIFER NON-REACT JENNIFER 2024 8:53 AM ARTIFICIAL MARBLE WORKER [employer] Comment: HIV-1 antigen and HIV-1/HIV-2 antibodies were not detected. There is no laboratory evidence of HIV infection. PLEASE NOTE: This information has been disclosed to you from records whose confidentiality may be protected by state law. If your state requires such protection, then the state law prohibits you from making any further disclosure of the information without the specific written consent of the person to whom it pertains, or as otherwise permitted by law. A general authorization for the release of medical or other information is NOT sufficient for this purpose. For additional information please refer to http://education.Ringleadr.com/faq/AFX907 (This link is being provided for informational/ educational purposes only.) The performance of this assay has not been clinically validated in patients less than 2 years old. Blood BLOOD SPECIMEN / Unknown Non-Lab Venipuncture / Unknown 09/19/2024 2:07 PM ARTIFICIAL MARBLE WORKER 09/19/2024 2:08 PM ARTIFICIAL MARBLE WORKER Zane MEAD SEND OUTS Final Result Performing Organization Address [facility]/ZIP Co de Phone Number [employer] [address] [address], * PHOSPHORUS (09/19/2024 2:07 PM ARTIFICIAL MARBLE WORKER) PHOSPHATE ( PHOSPHORUS) 3.1 2.1 - 4.3 mg/dL 2024 9:39 AM ARTIFICIAL MARBLE WORKER [facility] Blood BLOOD SPECIMEN / Unknown Non-Lab Venipuncture / Unknown 09/19/2024 2:07 PM ARTIFICIAL MARBLE WORKER 09/19/2024 2:08 PM ARTIFICIAL MARBLE WORKER Zane MEAD CHEMISTRY Final Result Performing Organization Address City/[facility]/ZIP Co de Phone Number [facility] [address] [place] [address], [place] [phone] * MAGNESIUM (09/19/2024 2:07 PM ARTIFICIAL MARBLE WORKER) MAGNESIUM 2.0 1.5 - 2.5 mg/dL 2024 9:39 AM ARTIFICIAL MARBLE WORKER [facility] Blood BLOOD SPECIMEN / Unknown Non-Lab Venipuncture / Unknown 09/19/2024 2:07 PM ARTIFICIAL MARBLE WORKER 09/19/2024 2:08 PM ARTIFICIAL MARBLE WORKER Zane MEAD CHEMISTRY Final Result Performing Organization Address [facility] de Phone Number [facility] [address] [address], [place] [phone] * CK TOTAL (09/19/2024 2:07 PM ARTIFICIAL MARBLE WORKER) CREATINE KINASE, TOTAL 165 19 - 278 U/L 2024 9:39 AM ARTIFICIAL MARBLE WORKER [facility] Blood BLOOD SPECIMEN / Unknown Non-Lab Venipuncture / Unknown 09/19/2024 2:07 PM ARTIFICIAL MARBLE WORKER 09/19/2024 2:08 PM ARTIFICIAL MARBLE WORKER Zane MEAD CHEMISTRY Final Result Performing Organization Address [facility]/ZIP Co de Phone Number [facility] [address] [place] [address], [place] [phone] * (ABNORMAL) COMP METABOLIC PANEL (09/19/2024 2:07 PM ARTIFICIAL MARBLE WORKER) Pathologist [facility] SODIUM 139 135 - 146 mmol/L 2024 9:27 AM ARTIFICIAL MARBLE WORKER [facility] POTASSIUM 4.2 3.5 - 5.3 mmol/L 2024 9:27 AM ARTIFICIAL MARBLE WORKER [facility] CHLORIDE 104 98 - 110 mmol/L 2024 9:27 AM ARTIFICIAL MARBLE WORKER [facility] CARBON DIOXIDE 26 20 - 32 mmol/L 2024 9:27 AM ARTIFICIAL MARBLE WORKER [facility] GLUCOSE 106(H) 65 - 99 mg/dL 2024 9:27 AM ARTIFICIAL MARBLE WORKER [facility] Comment: Fasting reference interval For someone without known diabetes, a glucose value between 100 and 125 mg/dL is consistent with prediabetes and should be confirmed with a follow-up test. CALCIUM 9.2 8.6 - 10.3 mg/dL 2024 9:27 AM ARTIFICIAL MARBLE WORKER [facility] CREATININE 1.47(H) 0.70 - 1.28 mg/dL 2024 9:27 AM ARTIFICIAL MARBLE WORKER [facility] BUN/CREATININE RATIO 14 6 - 22 (calc) 2024 9:27 AM ARTIFICIAL MARBLE WORKER [facility] EGFR 49(L) > OR = 60 mL/min/1. 73m2 2024 9:27 AM ARTIFICIAL MARBLE WORKER [facility] ALBUMIN 4.3 3.6 - 5.1 g/dL 2024 9:27 AM ARTIFICIAL MARBLE WORKER [facility] PROTEIN, TOTAL 6.8 6.1 - 8.1 g/dL 2024 9:27 AM ARTIFICIAL MARBLE WORKER [facility] BILIRUBIN, TOTAL 0.4 0.2 - 1.2 mg/dL 2024 9:27 AM ARTIFICIAL MARBLE WORKER [facility] ALKALINE PHOSPHATASE 59 35 - 144 U/L 2024 9:27 AM ARTIFICIAL MARBLE WORKER [facility] ALT 19 9 - 46 U/L 2024 9:27 AM ARTIFICIAL MARBLE WORKER [facility] AST 21 10 - 35 U/L 2024 9:27 AM ARTIFICIAL MARBLE WORKER [facility] UREA NITROGEN (BUN) 21 7 - 25 mg/dL 2024 9:27 AM ARTIFICIAL MARBLE WORKER [facility] GLOBULIN 2.5 1.9 - 3.7 g/dL (calc) 2024 9:27 AM ARTIFICIAL MARBLE WORKER [facility] ALBUMIN/GLOBULIN RATIO 1.7 1.0 - 2.5 (calc) 2024 9:27 AM ARTIFICIAL MARBLE WORKER [facility] Blood BLOOD SPECIMEN / Unknown Non-Lab Venipuncture / Unknown 09/19/2024 2:07 PM ARTIFICIAL MARBLE WORKER 09/19/2024 2:08 PM ARTIFICIAL MARBLE WORKER Zane MEAD CHEMISTRY Final Result [employer] [address] [address], * PROTEIN/CREAT RATIO,URINE (09/10/2024 2:34 PM ARTIFICIAL MARBLE WORKER) PROTEIN QUANT,RAND URINE 11 1 - 14 mg/dL 09/10/2024 11:35 PM ARTIFICIAL MARBLE WORKER [facility] CREAT,RANDOM URINE 83.2 39.0 - 259.0 mg/dL 09/10/2024 11:35 PM ARTIFICIAL MARBLE WORKER [facility] PROT/CREAT RATIO,UR 0.1 <0.2 09/10/2024 11:35 PM ARTIFICIAL MARBLE WORKER [facility] Urine URINE SPECIMEN / Unknown Non-Blood / Unknown 09/10/2024 2:34 PM ARTIFICIAL MARBLE WORKER 09/10/2024 2:34 PM ARTIFICIAL MARBLE WORKER us London Gupta MD URINE Final Result [facility] [address] [address], * (ABNORMAL) IRON PLUS IRON BINDING CAP (09/10/2024 2:34 PM ARTIFICIAL MARBLE WORKER) IRON, TOTAL 44(L) 50 - 180 mcg/dL [facility] IRON BINDING CAPACITY 335 250 - 425 mcg/dL (calc) [facility] % SATURATION 13(L) 20 - 48 % (calc) [facility] Blood BLOOD SPECIMEN / Unknown 09/10/2024 2:34 PM ARTIFICIAL MARBLE WORKER 09/10/2024 2:35 PM ARTIFICIAL MARBLE WORKER us London Gupta MD CHEMISTRY Final Result [facility] [address] [place] [address], [place] [phone] [facility] [address] [place] [address] * HEMOGLOBIN (09/10/2024 2:34 PM ARTIFICIAL MARBLE WORKER) Pathologist [facility] HEMOGLOBIN 13.7 13.2 - 17.1 g/dL [facility] Blood BLOOD SPECIMEN / Unknown 09/10/2024 2:34 PM ARTIFICIAL MARBLE WORKER 09/10/2024 2:35 PM ARTIFICIAL MARBLE WORKER us London Gupta MD HEMATOLOGY Final Result Performing Organization Address City/[facility]/ZIP Co de Phone Number [facility] [address] [place] [address], [place] [phone] [facility] [address] [place] [address] * FERRITIN (09/10/2024 2:34 PM ARTIFICIAL MARBLE WORKER) [facility] FERRITIN 135 24 - 380 ng/mL [facility] Blood BLOOD SPECIMEN / Unknown 09/10/2024 2:34 PM ARTIFICIAL MARBLE WORKER 09/10/2024 2:35 PM ARTIFICIAL MARBLE WORKER us London Gupta MD CHEMISTRY Final Result [facility] [address] [place] [address], [place] [phone] [facility] [address] [place] [address] * VITAMIN B12 (09/10/2024 2:34 PM ARTIFICIAL MARBLE WORKER) Pathologist [facility] VITAMIN B12 753 200 - 1,100 pg/mL [facility] Blood BLOOD SPECIMEN / Unknown 09/10/2024 2:34 PM ARTIFICIAL MARBLE WORKER 09/10/2024 2:35 PM ARTIFICIAL MARBLE WORKER us London Gupta MD CHEMISTRY Final Result [employer] [facility] [address] [place] [address], [place] [phone] [facility] [address] [place] [address] * (ABNORMAL) BASIC METABOLIC PANEL (09/10/2024 2:34 PM ARTIFICIAL MARBLE WORKER) Only the most recent of2 resultswithin the time period is included. GLUCOSE 109(H) 65 - 99 mg/dL [facility] Comment: Fasting reference interval For someone without known diabetes, a glucose value between 100 and 125 mg/dL is consistent with prediabetes and should be confirmed with a follow-up test. UREA NITROGEN (BUN) 37(H) 7 - 25 mg/dL [facility] CREATININE 2.17(H) 0.70 - 1.28 mg/dL [facility] EGFR 31(L) > OR = 60 mL/min/1.7 3m2 [facility] BUN/CREATININE RATIO 17 6 - 22 (calc) [facility] SODIUM 139 135 - 146 mmol/L [facility] POTASSIUM 4.5 3.5 - 5.3 mmol/L [facility] CHLORIDE 102 98 - 110 mmol/L [facility] CARBON DIOXIDE 29 20 - 32 mmol/L [facility] ELECTROLYTE BALANCE 8 7 - 17 mmol/L (calc) [facility] CALCIUM 9.6 8.6 - 10.3 mg/dL [facility] Blood BLOOD SPECIMEN / Unknown 09/10/2024 2:34 PM ARTIFICIAL MARBLE WORKER 09/10/2024 2:35 PM ARTIFICIAL MARBLE WORKER us London Gupta MD CHEMISTRY Final Result [employer] [facility] [address] [place] [address], [facility] [address] [place] [address] * CELIAC CASCADE PANEL (09/10/2024 12:00 AM ARTIFICIAL MARBLE WORKER) [facility] CELIAC DISEASE COMPREHENSIVE PANEL INTERPRETATION [facility] Comment: No serological evidence of celiac disease. tTG IgA may normalize in individuals with celiac disease who maintain a gluten-free diet. Consider HLA DQ2 and DQ8 testing to rule out celiac disease. Celiac disease is extremely rare in the absence of DQ2 or DQ8. TISSUE TRANSGLUTAMINASE AB, IGA <1.0 U/mL [facility] Comment: Value Interpretation ----- <15.0 Antibody not detected > or = 15.0 Antibody detected IMMUNOGLOBULIN A 127 70 - 320 mg/dL [facility] Blood BLOOD SPECIMEN / Unknown 09/10/2024 09/11/2024 9:43 AM ARTIFICIAL MARBLE WORKER London Gupta MD SEND OUTS Final Result [employer] [facility] [address] [place] [address], [facility] [address] [place] [address] * (ABNORMAL) CBC AND DIFFERENTIAL (08/25/2024 1:36 PM ARTIFICIAL MARBLE WORKER) [facility] WHITE BLOOD CELL COUNT 7.1 3.8 - 10.8 Thousand/u L [facility] RED BLOOD CELL COUNT 4.12(L) 4.20 - 5.80 Million/uL [facility] HEMOGLOBIN 13.1(L) 13.2 - 17.1 g/dL [facility] HEMATOCRIT 39.0 38.5 - 50.0 % [facility] MCV 94.7 80.0 - 100.0 fL [facility] MCH 31.8 27.0 - 33.0 pg [facility] MCHC 33.6 32.0 - 36.0 g/dL [facility] Comment: For adults, a slight decrease in the calculated MCHC value (in the range of 30 to 32 g/dL) is most likely not clinically significant; however, it should be interpreted with caution in correlation with other red cell parameters and the patient's clinical condition. RDW 13.2 11.0 - 15.0 % [facility] PLATELET COUNT 245 140 - 400 Thousand/u L [facility] MPV 11.2 7.5 - 12.5 fL [facility] ABSOLUTE NEUTROPHILS 3,507 1,500 - 7,800 cells/uL [facility] ABSOLUTE LYMPHOCYTES 1,889 850 - 3,900 cells/uL [facility] ABSOLUTE MONOCYTES 696 200 - 950 cells/uL [facility] ABSOLUTE EOSINOPHILS 888(H) 15 - 500 cells/uL [facility] ABSOLUTE BASOPHILS 121 0 - 200 cells/uL [facility] NEUTROPHILS 49.4 % [facility] LYMPHOCYTES 26.6 % [facility] MONOCYTES 9.8 % [facility] EOSINOPHILS 12.5 % [facility] BASOPHILS 1.7 % [facility] Blood BLOOD SPECIMEN / Unknown 08/25/2024 1:36 PM ARTIFICIAL MARBLE WORKER 08/25/2024 1:37 PM ARTIFICIAL MARBLE WORKER us London Gupta MD HEMATOLOGY Final Result [facility] [address] [place] [address], [facility] [address] [place] [address] * URIC ACID (08/25/2024 1:36 PM ARTIFICIAL MARBLE WORKER) URIC ACID 7.6 4.0 - 8.0 mg/dL [facility] Comment: Therapeutic target for gout patients: <6.0 mg/dL Blood BLOOD SPECIMEN / Unknown 08/25/2024 1:36 PM ARTIFICIAL MARBLE WORKER 08/25/2024 1:37 PM ARTIFICIAL MARBLE WORKER London Gupta MD CHEMISTRY Final Result [facility] [address] [facility] [place] [address], [place] [phone] [facility] [address] [place] [address] from Last 3 Months Insurance BLUE CROSS MEDICARE ADVANTAGE MR MEDICARE PART A HB ONLY Care Teams Website Optimization Strategist Relationship Specialty Start Date End Date London Gupta MD [address] [place] [address] PCP - General Family Practice 05/10/20 AlZane clement MBBS [address] [place] [address] Nephrology 09/17/24
[2024-09-29 19:45] LABS: Albumin* 4.4 g/dL (3.3-5.0); Chloride* 103 mmol/L (96-114); Sodium* 136 mmol/L (135-149)
[2024-09-29 19:47] LABS: Blood Urea Nitrogen* 22 mg/dL (7-30); Creatinine* 1.6 mg/dL (0.5-1.5); Est. Creatinine Clearance* 38.66; Estimated Glomerular Filt Rate 44 ml/min
[2024-09-29 19:48] LABS: Alanine Aminotransferase* 20 U/L (4-50); Alkaline Phosphatase* 55 U/L (40-150); Anion Gap 9 mEq/L (7-15); Aspartate Amino Transferase* 25 U/L (12-35); Bilirubin Total* 0.4 mg/dL (0.1-1.5); Calcium* 9.1 mg/dL (8.4-10.6); Carbon Dioxide* 24 mmol/L (20-32); Glucose* 108 mg/dL (60-115); Total Protein* 7.1 g/dL (6.0-8.3)
[2024-09-29 19:59] LABS: NT Pro B Type NatriureticPept* 84 pg/mL
[2024-09-29 20:31] LABS: D Dimer Quantitative* 0.94 ug/ml (0.00-0.50)
[2024-09-29 20:47] LABS: PCR FLU A Negative PCR FLU A (Negative); PCR FLU B Negative PCR FLU B (Negative); PCR RSV Negative PCR RSV (Negative); SARS PCR* Negative SARS-CoV-2 (Negative)
== END 2024-09-30 00:14 | disposition home or self-care (01) ==
PROVIDERS: Emergency Provider Family Medicine; PCP Family Medicine
DX: J40 Bronchitis, not specified as acute or chronic (principal); R09.02 Hypoxemia
CPT/HCPCS: 36415; 71045; 71275; 80053; 83880; 84484; 85025; 85379; 87631; 93005; 94761; 99284; 99285; Q9967